=== PATIENT | female | born 1975 | race Two or more races ===

== ENCOUNTER 2022-11-16 07:13 | Inpatient (IN) | payer OTHER ==
[2022-11-16 08:33] LABS: HEMATOCRIT 26.2 % (32.4-45.2); HEMOGLOBIN 8.5 GM/dL (10.7-15.3); MCH 30.5 pg (25.7-33.7); MCHC 32.5 g/dl (32.0-36.0); MEAN CELL VOLUME 93.8 fl (80-96); MEAN PLT VOLUME 8.9 fl (7.5-11.1); PLATELET COUNT 409 10^3/uL (134-434); RBC 2.79 M/mm3 (3.60-5.2); RDW 18.4 % (11.6-15.6); WHITE BLOOD COUNT 7.2 K/mm3 (4.0-10.0)
[2022-11-16 08:36] LABS: INR 1.02 (0.83-1.09); PROTHROMBIN TIME (PATIENT) 11.8 SEC (9.7-13.0)
[2022-11-16 08:38] LABS: VENOUS BASE EXCESS -2.8 mmol/L (-2-2); VENOUS PH 7.422 (7.310-7.410)
[2022-11-16 08:53] LABS: LACTIC ACID 2.6 mmol/L (0.4-2.0)
[2022-11-16 08:56] LABS: POTASSIUM 3.5 mmol/L (3.5-5.1)
[2022-11-16 08:57] LABS: CALCIUM 8.1 mg/dL (8.5-10.1)
[2022-11-16 08:58] LABS: ALBUMIN 2.2 g/dl (3.4-5.0); BLOOD UREA NITROGEN 34.3 mg/dL (7-18)
[2022-11-16 09:01] LABS: CREATININE 1.7 mg/dL (0.55-1.3)
[2022-11-16 09:02] LABS: BILIRUBIN,TOTAL 0.2 mg/dL (0.2-1); TOT PROT 6.9 g/dl (6.4-8.2)
[2022-11-16] MEDS ORDERED: ASPIRIN 81 MG CHEWABLE TABLETS PO ONE (09:10)
[2022-11-16] MEDS ORDERED: MEROPENEM 1 GM VIAL (RESTRICTED TO ID) IVPB ONE (09:18)
[2022-11-16] MEDS ORDERED: ASPIRIN 81 MG CHEWABLE TABLETS ONE (09:18)
[2022-11-16] MEDS ORDERED: FUROSEMIDE 40 MG/4 ML INJECTABLE VIAL IVPUSH ONE (09:28)
[2022-11-16] MEDS ORDERED: VANCOMYCIN 1 GRAM (PRE-DOCKED) 1,000 MG/250 ML BAG IVPB ONE (09:32)
[2022-11-16] MEDS: MEROPENEM 1 GM in DEXTROSE 5%-WATER 100 ML IVPB ONE ×2 (09:38→10:10)
[2022-11-16] MEDS ORDERED: VANCOMYCIN/WATER FOR INJ (PEG) 1,000 MG/200 ML BAG IVPB ONE (10:00)
[2022-11-16] MEDS ORDERED: VANCOMYCIN 1,000 MG in DEXTROSE 5%-WATER - 250 ML IVPB ONE (10:00)
[2022-11-16 10:03] LABS: ANISOCYTOSIS 0; HELMET CELLS 0; HOWELL-JOLLY BODIES 0; MACROCYTOSIS 0; OVALOCYTE 0; ROULEAU 0; SICKELED CELLS 0; TARGET CELLS 0; TEAR DROP CELLS 0; TOXIC GRANULATION 0
[2022-11-16] MEDS ORDERED: FUROSEMIDE 40 MG/4 ML INJECTABLE VIAL ONE ×2 (10:13→14:24)
[2022-11-16 10:53] LABS: CHLORIDE 94 mmol/L (98-107); POTASSIUM 4.6 mmol/L (3.5-5.1); SODIUM 128 mmol/L (136-145)
[2022-11-16 10:54] LABS: ANION GAP 10 MMOL/L (8-16); CALCIUM 8.2 mg/dL (8.5-10.1); CO2 24 mmol/L (21-32)
[2022-11-16 10:55] LABS: BLOOD UREA NITROGEN 37.2 mg/dL (7-18); GLUCOSE,RANDOM 153 mg/dL (74-106)
[2022-11-16 10:58] LABS: CREATININE 1.7 mg/dL (0.55-1.3)
[2022-11-16 11:13] LABS: N-TERMINAL BNP > 35000.0 pg/ml (5-125)
[2022-11-16] MEDS ORDERED: ALBUTEROL SO4 2.5/IPRATROPIUM 0.5 INH SOL 3 ML VIAL.NEB. NEB PRN (12:20)
[2022-11-16] MEDS ORDERED: ACETAMINOPHEN 325 MG TABLET (FP) PO PRN (12:21)
[2022-11-16] MEDS ORDERED: ACETAMINOPHEN 650 MG/20.3 ML ORAL SOLUTION (CUPS) PO PRN (12:53)
[2022-11-16] MEDS ORDERED: FAMOTIDINE 20 MG/2.5 ML ORAL LIQUID GT SCH (13:00)
[2022-11-16] MEDS ORDERED: SEVELAMER CARBONATE 0.8 GM POWDER PACKET GT SCH (14:00)
[2022-11-16] MEDS ORDERED: ESCITALOPRAM OXALATE 10 MG TABLET ONE (14:40)
[2022-11-16] MEDS ORDERED: cloNIDine HCL 0.1 MG TABLET ONE ×2 (14:40→21:35)
[2022-11-16] MEDS ORDERED: CARVEDILOL 25 MG TABLET (FP) ONE ×2 (14:40→21:35)
[2022-11-16] MEDS: cloNIDine HCL 0.1 MG TABLET GT SCH ×2 (14:42→21:53)
[2022-11-16] MEDS: SODIUM CHLORIDE 1 GM TABLET GT SCH (14:42)
[2022-11-16] MEDS: CARVEDILOL 25 MG TABLET (FP) GT SCH ×2 (14:42→21:53)
[2022-11-16] MEDS: ESCITALOPRAM OXALATE 10 MG TABLET GT SCH (14:42)
[2022-11-16] MEDS: ISOSORBIDE DINITRATE 10 MG TABLET GT SCH (14:43)
[2022-11-16] MEDS: FUROSEMIDE 40 MG/4 ML INJECTABLE VIAL IVPUSH SCH (14:43)
[2022-11-16] MEDS: VALPROATE SODIUM 250 MG/5 ML UNIT DOSE CUP GT SCH ×2 (14:43→21:53)
[2022-11-16 15:30] LABS: PH,URINE 5.5 (5.0-8.0); URINE APPEARANCE Clear; URINE BILIRUBIN Negative (NEGATIVE); URINE COLOR Yellow; URINE GLUCOSE (UA) Negative (NEGATIVE); URINE KETONE Negative (NEGATIVE); URINE LEUK ESTERASE 2+ (NEGATIVE); URINE NITRITE Negative (NEGATIVE); URINE PROTEIN 1+ (NEGATIVE); URINE UROBILINOGEN 0.2 mg/dL (0.2-1.0)
[2022-11-16] MEDS: SEVELAMER CARBONATE 0.8 GM POWDER PACKET GT SCH (17:31)
[2022-11-16] MEDS ORDERED: ATORVASTATIN CA 80 MG TABLET (FP) ONE (21:35)
[2022-11-16] MEDS ORDERED: VALPROATE SODIUM 500 MG/5 ML VIAL ONE (21:35)
[2022-11-16] MEDS ORDERED: HEPARIN NA (PORCINE) 5,000 UNITS/ML 1ML VIAL ONE (21:35)
[2022-11-16] MEDS: HEPARIN NA (PORCINE) 5,000 UNITS/ML 1ML VIAL SQ SCH (21:53)
[2022-11-16] MEDS: ATORVASTATIN CA 80 MG TABLET (FP) GT SCH (21:53)
[2022-11-17] MEDS: FUROSEMIDE 40 MG/4 ML INJECTABLE VIAL IVPUSH SCH ×2 (06:35→16:14)
[2022-11-17 08:12] LABS: POTASSIUM 3.2 mmol/L (3.5-5.1)
[2022-11-17 08:15] LABS: BLOOD UREA NITROGEN 52.3 mg/dL (7-18); CALCIUM 8.6 mg/dL (8.5-10.1)
[2022-11-17 08:19] LABS: CREATININE 2.2 mg/dL (0.55-1.3)
[2022-11-17 08:32] LABS: BASO % 0.2 % (0-2.0); HEMATOCRIT 26.9 % (32.4-45.2); HEMOGLOBIN 8.5 GM/dL (10.7-15.3); MCH 30.1 pg (25.7-33.7); MCHC 31.6 g/dl (32.0-36.0); MEAN CELL VOLUME 95.2 fl (80-96); MEAN PLT VOLUME 8.2 fl (7.5-11.1); NEUT % 77.8 % (42.8-82.8); PLATELET COUNT 448 10^3/uL (134-434); RBC 2.82 M/mm3 (3.60-5.2); RDW 17.9 % (11.6-15.6); WHITE BLOOD COUNT 9.8 K/mm3 (4.0-10.0)
[2022-11-17] MEDS: VALPROATE SODIUM 250 MG/5 ML UNIT DOSE CUP GT SCH ×2 (09:47→22:42)
[2022-11-17] MEDS: ISOSORBIDE DINITRATE 10 MG TABLET GT SCH ×2 (09:48→13:46)
[2022-11-17] MEDS: ESCITALOPRAM OXALATE 10 MG TABLET GT SCH (09:49)
[2022-11-17] MEDS: CARVEDILOL 25 MG TABLET (FP) GT SCH ×2 (09:49→22:41)
[2022-11-17] MEDS: cloNIDine HCL 0.1 MG TABLET GT SCH ×2 (10:18→22:41)
[2022-11-17] MEDS: HEPARIN NA (PORCINE) 5,000 UNITS/ML 1ML VIAL SQ SCH ×2 (10:18→22:42)
[2022-11-17] MEDS: SEVELAMER CARBONATE 0.8 GM POWDER PACKET GT SCH ×3 (10:18→17:20)
[2022-11-17] MEDS: SODIUM CHLORIDE 1 GM TABLET GT SCH (10:18)
[2022-11-17] MEDS ORDERED: SODIUM CHLORIDE 250 ML IV PRN (21:19)
[2022-11-17] MEDS: ATORVASTATIN CA 80 MG TABLET (FP) GT SCH (22:42)
[2022-11-17] MEDS: CHLORHEXIDINE GLUCONATE 4% CLEANSER FOR DECOLONIZATION TP SCH (23:38)
[2022-11-17] MEDS: MUPIROCIN 2% TOPICAL OINTMENT FOR DECOLONIZATION NS SCH (23:38)
[2022-11-18] MEDS ORDERED: FUROSEMIDE 40 MG/4 ML INJECTABLE VIAL IVPUSH ONE (02:14)
[2022-11-18] MEDS ORDERED: FUROSEMIDE 40 MG/4 ML INJECTABLE VIAL ONE (02:27)
[2022-11-18] MEDS: hydrALAZINE HCL 20 MG/ML VIAL IVPUSH PRN (03:42)
[2022-11-18] MEDS ORDERED: ALBUTEROL SO4 2.5/IPRATROPIUM 0.5 INH SOL 3 ML VIAL.NEB. NEB PRN (07:16)
[2022-11-18] MEDS ORDERED: ALPRAZolam 0.25 MG TABLET PO PRN (07:37)
[2022-11-18] MEDS: SEVELAMER CARBONATE 0.8 GM POWDER PACKET GT SCH ×3 (07:58→17:49)
[2022-11-18] MEDS: ISOSORBIDE DINITRATE 10 MG TABLET GT SCH ×2 (07:58→12:40)
[2022-11-18] MEDS: HEPARIN NA (PORCINE) 5,000 UNITS/ML 1ML VIAL SQ SCH ×3 (09:43→22:45)
[2022-11-18] MEDS: VALPROATE SODIUM 250 MG/5 ML UNIT DOSE CUP GT SCH ×2 (09:43→22:33)
[2022-11-18] MEDS: FAMOTIDINE 20 MG/2.5 ML ORAL LIQUID GT SCH (09:43)
[2022-11-18] MEDS: cloNIDine HCL 0.1 MG TABLET GT SCH ×2 (09:44→22:33)
[2022-11-18] MEDS: ESCITALOPRAM OXALATE 10 MG TABLET GT SCH (09:44)
[2022-11-18] MEDS: CARVEDILOL 25 MG TABLET (FP) GT SCH ×2 (09:44→22:32)
[2022-11-18] MEDS: MUPIROCIN 2% TOPICAL OINTMENT FOR DECOLONIZATION NS SCH ×2 (09:45→22:33)
[2022-11-18 11:16] LABS: HEMATOCRIT 23.3 % (32.4-45.2); HEMOGLOBIN 7.8 GM/dL (10.7-15.3); MCH 30.8 pg (25.7-33.7); MCHC 33.3 g/dl (32.0-36.0); MEAN CELL VOLUME 92.5 fl (80-96); MEAN PLT VOLUME 7.7 fl (7.5-11.1); PLATELET COUNT 451 10^3/uL (134-434); RBC 2.52 M/mm3 (3.60-5.2); RDW 17.8 % (11.6-15.6)
[2022-11-18 11:37] LABS: POTASSIUM 3.2 mmol/L (3.5-5.1)
[2022-11-18 11:39] LABS: CALCIUM 8.2 mg/dL (8.5-10.1)
[2022-11-18 11:40] LABS: BLOOD UREA NITROGEN 34.2 mg/dL (7-18); MAGNESIUM 1.7 mg/dL (1.8-2.4)
[2022-11-18 11:43] LABS: PHOSPHOROUS 2.2 mg/dL (2.5-4.9)
[2022-11-18 12:40] VITALS: BMI 16.9
[2022-11-18] MEDS: CHLORHEXIDINE GLUCONATE 4% CLEANSER FOR DECOLONIZATION TP SCH (22:34)
[2022-11-18] MEDS: ATORVASTATIN CA 80 MG TABLET (FP) GT SCH (22:34)
[2022-11-19] MEDS ORDERED: INSULIN (NOVOLOG) ASPART 100 UNITS/ML 10ML VIAL ONE (06:57)
[2022-11-19 07:21] LABS: HEMATOCRIT 24.6 % (32.4-45.2); RBC 2.62 M/mm3 (3.60-5.2); WHITE BLOOD COUNT 11.2 K/mm3 (4.0-10.0)
[2022-11-19 07:22] LABS: BASO % 0.5 % (0-2.0); EOS % 1.1 % (0-4.5); MCH 30.4 pg (25.7-33.7); MCHC 32.4 g/dl (32.0-36.0); MEAN CELL VOLUME 93.8 fl (80-96); MEAN PLT VOLUME 7.7 fl (7.5-11.1); MONO % 5.5 % (3.8-10.2); NEUT % 84.9 % (42.8-82.8); PLATELET COUNT 526 10^3/uL (134-434); RDW 18.4 % (11.6-15.6)
[2022-11-19 07:41] LABS: POTASSIUM 3.8 mmol/L (3.5-5.1)
[2022-11-19 07:47] LABS: CALCIUM 8.2 mg/dL (8.5-10.1)
[2022-11-19 07:50] LABS: PHOSPHOROUS 2.8 mg/dL (2.5-4.9)
[2022-11-19 07:51] LABS: CREATININE 2.9 mg/dL (0.55-1.3)
[2022-11-19] MEDS: SEVELAMER CARBONATE 0.8 GM POWDER PACKET GT SCH ×3 (08:26→17:24)
[2022-11-19] MEDS: ISOSORBIDE DINITRATE 10 MG TABLET GT SCH ×2 (08:26→13:00)
[2022-11-19] MEDS: cloNIDine HCL 0.1 MG TABLET GT SCH ×2 (10:24→21:42)
[2022-11-19] MEDS: HEPARIN NA (PORCINE) 5,000 UNITS/ML 1ML VIAL SQ SCH ×2 (10:24→21:42)
[2022-11-19] MEDS: CARVEDILOL 25 MG TABLET (FP) GT SCH ×2 (10:24→21:42)
[2022-11-19] MEDS: ESCITALOPRAM OXALATE 10 MG TABLET GT SCH (10:24)
[2022-11-19] MEDS: VALPROATE SODIUM 250 MG/5 ML UNIT DOSE CUP GT SCH ×2 (10:24→21:42)
[2022-11-19] MEDS: MUPIROCIN 2% TOPICAL OINTMENT FOR DECOLONIZATION NS SCH ×2 (10:25→21:38)
[2022-11-19] MEDS ORDERED: FUROSEMIDE 40 MG/4 ML INJECTABLE VIAL IVPUSH ONE (10:30)
[2022-11-19] MEDS: ALPRAZolam 0.25 MG TABLET PO PRN (18:08)
[2022-11-19] MEDS: ACETAMINOPHEN 650 MG/20.3 ML ORAL SOLUTION (CUPS) GT PRN (18:12)
[2022-11-19] MEDS: CHLORHEXIDINE GLUCONATE 4% CLEANSER FOR DECOLONIZATION TP SCH (21:42)
[2022-11-19] MEDS: ATORVASTATIN CA 80 MG TABLET (FP) GT SCH (21:42)
[2022-11-20] MEDS ORDERED: LORazepam 2 MG/ML SDV VIAL IVPB ONE (03:16)
[2022-11-20] MEDS ORDERED: FUROSEMIDE 40 MG/4 ML INJECTABLE VIAL IVPUSH ONE (05:14)
[2022-11-20] MEDS ORDERED: FUROSEMIDE 100 MG/10 ML INJECTABLE VIAL IVPB ONE (05:17)
[2022-11-20] MEDS: ALPRAZolam 0.25 MG TABLET PO PRN (06:03)
[2022-11-20 06:38] LABS: BASO % 0.3 % (0-2.0); EOS % 0.5 % (0-4.5); HEMATOCRIT 28.9 % (32.4-45.2); HEMOGLOBIN 9.3 GM/dL (10.7-15.3); LYMPH % 4.9 % (8-40); MCH 30.5 pg (25.7-33.7); MCHC 32.1 g/dl (32.0-36.0); MEAN CELL VOLUME 94.9 fl (80-96); MEAN PLT VOLUME 7.7 fl (7.5-11.1); MONO % 3.6 % (3.8-10.2); NEUT % 90.7 % (42.8-82.8); PLATELET COUNT 568 10^3/uL (134-434); RBC 3.04 M/mm3 (3.60-5.2); RDW 18.6 % (11.6-15.6); WHITE BLOOD COUNT 10.8 K/mm3 (4.0-10.0)
[2022-11-20 06:44] LABS: ARTERIAL BLD GAS O2 SATURATION 93.6 % (95-98); ARTERIAL BLOOD GAS BASE EXCESS 0.8 mmol/L (-2-2); ARTERIAL BLOOD GAS PO2 64.4 mmHg (80-100); ARTERIAL BLOOD GAS pH 7.452 (7.350-7.450)
[2022-11-20] MEDS ORDERED: SODIUM CHLORIDE 250 ML IV PRN (06:58)
[2022-11-20 06:59] LABS: POTASSIUM 4.8 mmol/L (3.5-5.1)
[2022-11-20 07:02] LABS: VENT MODE S/T; VENT RATE 25
[2022-11-20 07:02] LABS: ALBUMIN 2.1 g/dl (3.4-5.0); BLOOD UREA NITROGEN 52.4 mg/dL (7-18); CALCIUM 8.7 mg/dL (8.5-10.1); MAGNESIUM 2.1 mg/dL (1.8-2.4)
[2022-11-20 07:05] LABS: CREATININE 3.8 mg/dL (0.55-1.3); PHOSPHOROUS 3.8 mg/dL (2.5-4.9)
[2022-11-20 07:07] LABS: BILIRUBIN,TOTAL 0.3 mg/dL (0.2-1); TOT PROT 6.4 g/dl (6.4-8.2)
[2022-11-20] MEDS ORDERED: MIDAZOLAM HCL 2 MG/2 ML SINGLE DOSE VIAL IVPUSH ONE ×4 (08:16→10:53)
[2022-11-20] MEDS: ISOSORBIDE DINITRATE 10 MG TABLET GT SCH ×2 (09:51→13:41)
[2022-11-20] MEDS: VALPROATE SODIUM 250 MG/5 ML UNIT DOSE CUP GT SCH ×2 (09:51→21:42)
[2022-11-20] MEDS: CARVEDILOL 25 MG TABLET (FP) GT SCH ×2 (09:51→21:40)
[2022-11-20] MEDS: HEPARIN NA (PORCINE) 5,000 UNITS/ML 1ML VIAL SQ SCH ×2 (09:51→21:42)
[2022-11-20] MEDS: cloNIDine HCL 0.1 MG TABLET GT SCH ×2 (09:52→21:40)
[2022-11-20] MEDS: ESCITALOPRAM OXALATE 10 MG TABLET GT SCH (09:52)
[2022-11-20] MEDS: SEVELAMER CARBONATE 0.8 GM POWDER PACKET GT SCH ×3 (09:52→16:34)
[2022-11-20] MEDS: MUPIROCIN 2% TOPICAL OINTMENT FOR DECOLONIZATION NS SCH ×3 (09:52→21:42)
[2022-11-20] MEDS: FAMOTIDINE 20 MG/2.5 ML ORAL LIQUID GT SCH (09:52)
[2022-11-20 10:47] LABS: ARTERIAL BLD GAS O2 SATURATION 98.7 % (95-98); ARTERIAL BLOOD GAS BASE EXCESS 6.1 mmol/L (-2-2); ARTERIAL BLOOD GAS PO2 123.1 mmHg (80-100); ARTERIAL BLOOD GAS pH 7.491 (7.350-7.450)
[2022-11-20 10:51] LABS: ALLENS TEST POSITIVE
[2022-11-20] MEDS ORDERED: LIDOCAINE HCL 1%, 10 MG/ML (10ML VIAL) MDV SQ ONE (11:13)
[2022-11-20 13:04] LABS: BF WBC & OTHER NUCLEATED CELLS 381 /mm3
[2022-11-20 13:29] LABS: BODY FLUID MACROPHAGES 60 %; BODY FLUID MESOTHELIAL 2 %
[2022-11-20] MEDS: ACETAMINOPHEN 650 MG/20.3 ML ORAL SOLUTION (CUPS) GT PRN (18:08)
[2022-11-20] MEDS ORDERED: MEROPENEM 1 GM in DEXTROSE 5%-WATER 100 ML IVPB SCH (18:15)
[2022-11-20] MEDS: MEROPENEM 1 GM in DEXTROSE 5%-WATER 100 ML IVPB SCH (18:40)
[2022-11-20] MEDS: ATORVASTATIN CA 80 MG TABLET (FP) GT SCH (21:42)
[2022-11-20] MEDS: CHLORHEXIDINE GLUCONATE 4% CLEANSER FOR DECOLONIZATION TP SCH (21:42)
[2022-11-21] MEDS: MEROPENEM 1 GM in DEXTROSE 5%-WATER 100 ML IVPB SCH (01:12)
[2022-11-21] MEDS ORDERED: MEROPENEM 1 GM in DEXTROSE 5%-WATER 100 ML IVPB SCH (02:00)
[2022-11-21] MEDS: ALPRAZolam 0.25 MG TABLET PO PRN (05:49)
[2022-11-21 07:05] LABS: BASO % 0.4 % (0-2.0); EOS % 0.6 % (0-4.5); HEMATOCRIT 26.6 % (32.4-45.2); HEMOGLOBIN 8.7 GM/dL (10.7-15.3); LYMPH % 7.1 % (8-40); MCHC 32.6 g/dl (32.0-36.0); MEAN PLT VOLUME 7.7 fl (7.5-11.1); MONO % 4.5 % (3.8-10.2); NEUT % 87.4 % (42.8-82.8); PLATELET COUNT 479 10^3/uL (134-434); RDW 18.5 % (11.6-15.6); WHITE BLOOD COUNT 8.1 K/mm3 (4.0-10.0)
[2022-11-21 07:25] LABS: MAGNESIUM 1.9 mg/dL (1.8-2.4)
[2022-11-21 07:29] LABS: PHOSPHOROUS 5.2 mg/dL (2.5-4.9)
[2022-11-21 08:04] LABS: POTASSIUM 4.1 mmol/L (3.5-5.1)
[2022-11-21 08:05] LABS: CALCIUM 8.3 mg/dL (8.5-10.1)
[2022-11-21 08:07] LABS: BLOOD UREA NITROGEN 27.7 mg/dL (7-18)
[2022-11-21 08:11] LABS: BILIRUBIN,TOTAL 0.2 mg/dL (0.2-1); TOT PROT 6.2 g/dl (6.4-8.2)
[2022-11-21] MEDS: ISOSORBIDE DINITRATE 10 MG TABLET GT SCH ×2 (09:00→14:14)
[2022-11-21] MEDS: VALPROATE SODIUM 250 MG/5 ML UNIT DOSE CUP GT SCH ×2 (10:00→21:05)
[2022-11-21] MEDS: SEVELAMER CARBONATE 0.8 GM POWDER PACKET GT SCH ×3 (10:00→17:56)
[2022-11-21] MEDS: MUPIROCIN 2% TOPICAL OINTMENT FOR DECOLONIZATION NS SCH ×4 (10:00→21:05)
[2022-11-21] MEDS ORDERED: VANCOMYCIN/WATER FOR INJ (PEG) 750 MG/150 ML BAG IVPB ONE (10:00)
[2022-11-21] MEDS: ACETAMINOPHEN 650 MG/20.3 ML ORAL SOLUTION (CUPS) GT PRN ×2 (10:00→21:06)
[2022-11-21] MEDS: CARVEDILOL 25 MG TABLET (FP) GT SCH ×2 (10:01→21:05)
[2022-11-21] MEDS: ESCITALOPRAM OXALATE 10 MG TABLET GT SCH (10:01)
[2022-11-21] MEDS: HEPARIN NA (PORCINE) 5,000 UNITS/ML 1ML VIAL SQ SCH ×2 (10:01→21:05)
[2022-11-21] MEDS: cloNIDine HCL 0.1 MG TABLET GT SCH ×2 (10:01→21:05)
[2022-11-21] MEDS ORDERED: SODIUM CHLORIDE 500 ML IV STA (13:29)
[2022-11-21] MEDS: CEFEPIME 1 GM in DEXTROSE 5%-WATER 100 ML IVPB SCH (14:18)
[2022-11-21] MEDS: ATORVASTATIN CA 80 MG TABLET (FP) GT SCH (21:05)
[2022-11-21] MEDS: CHLORHEXIDINE GLUCONATE 4% CLEANSER FOR DECOLONIZATION TP SCH (21:06)
[2022-11-21] MEDS ORDERED: POLYETHYLENE GLYCOL (HEALTHYLAX) 3350 17 GM PACKET PO SCH (22:00)
[2022-11-22 07:20] LABS: HEMOGLOBIN 7.8 GM/dL (10.7-15.3); MCHC 32.4 g/dl (32.0-36.0); MEAN CELL VOLUME 95.5 fl (80-96); MEAN PLT VOLUME 7.6 fl (7.5-11.1); PLATELET COUNT 359 10^3/uL (134-434); RBC 2.51 M/mm3 (3.60-5.2); RDW 18.6 % (11.6-15.6); WHITE BLOOD COUNT 4.6 K/mm3 (4.0-10.0)
[2022-11-22 08:19] LABS: POTASSIUM 4.1 mmol/L (3.5-5.1)
[2022-11-22 08:33] LABS: BILIRUBIN,TOTAL 0.2 mg/dL (0.2-1)
[2022-11-22 08:35] LABS: TOT PROT 5.3 g/dl (6.4-8.2)
[2022-11-22 08:38] LABS: ALBUMIN 1.6 g/dl (3.4-5.0); BLOOD UREA NITROGEN 44.9 mg/dL (7-18)
[2022-11-22 08:42] LABS: CREATININE 4.4 mg/dL (0.55-1.3); PHOSPHOROUS 6.8 mg/dL (2.5-4.9)
[2022-11-22 08:43] LABS: CALCIUM 8.3 mg/dL (8.5-10.1)
[2022-11-22 08:44] LABS: MAGNESIUM 2.2 mg/dL (1.8-2.4)
[2022-11-22] MEDS ORDERED: SODIUM CHLORIDE 250 ML IV PRN (09:59)
[2022-11-22] MEDS ORDERED: EPOETIN ALFA-EPBX 4,000 UNIT/ML VIAL SQ ONE (10:00)
[2022-11-22] MEDS: CARVEDILOL 25 MG TABLET (FP) GT SCH ×2 (10:00→21:43)
[2022-11-22] MEDS: hydrALAZINE HCL 20 MG/ML VIAL IVPUSH PRN (12:01)
[2022-11-22] MEDS: FAMOTIDINE 20 MG/2.5 ML ORAL LIQUID GT SCH (12:01)
[2022-11-22] MEDS: ISOSORBIDE DINITRATE 10 MG TABLET GT SCH ×2 (12:01→14:34)
[2022-11-22] MEDS: CEFEPIME 1 GM in DEXTROSE 5%-WATER 100 ML IVPB SCH (12:02)
[2022-11-22] MEDS: ESCITALOPRAM OXALATE 10 MG TABLET GT SCH (12:03)
[2022-11-22] MEDS: MUPIROCIN 2% TOPICAL OINTMENT FOR DECOLONIZATION NS SCH ×3 (12:04→21:43)
[2022-11-22] MEDS: cloNIDine HCL 0.1 MG TABLET GT SCH ×2 (12:04→21:42)
[2022-11-22] MEDS: VALPROATE SODIUM 250 MG/5 ML UNIT DOSE CUP GT SCH ×2 (12:04→21:42)
[2022-11-22] MEDS: SEVELAMER CARBONATE 0.8 GM POWDER PACKET GT SCH ×3 (12:05→17:44)
[2022-11-22] MEDS: ACETAMINOPHEN 650 MG/20.3 ML ORAL SOLUTION (CUPS) GT PRN ×2 (14:19→21:41)
[2022-11-22] MEDS: HEPARIN NA (PORCINE) 5,000 UNITS/ML 1ML VIAL SQ SCH ×2 (14:32→21:43)
[2022-11-22 16:09] LABS: BODY FLUID ALBUMIN 0.5 g/dL (Not Estab.)
[2022-11-22] MEDS: MEROPENEM 500 MG in DEXTROSE 5%-WATER 100 ML IVPB SCH (17:44)
[2022-11-22] MEDS ORDERED: hydrALAZINE HCL 20 MG/ML VIAL IVPUSH PRN (19:10)
[2022-11-22] MEDS ORDERED: ALBUTEROL SO4 2.5/IPRATROPIUM 0.5 INH SOL 3 ML VIAL.NEB. NEB PRN (19:10)
[2022-11-22] MEDS: ALPRAZolam 0.25 MG TABLET GT PRN (21:41)
[2022-11-22] MEDS: ATORVASTATIN CA 80 MG TABLET (FP) GT SCH (21:42)
[2022-11-22] MEDS: CHLORHEXIDINE GLUCONATE 4% CLEANSER FOR DECOLONIZATION TP SCH (21:43)
[2022-11-22] MEDS ORDERED: MUPIROCIN 2% TOPICAL OINTMENT FOR DECOLONIZATION NS SCH (22:00)
[2022-11-23 07:49] LABS: HEMATOCRIT 30.2 % (32.4-45.2); HEMOGLOBIN 9.8 GM/dL (10.7-15.3); MCH 30.8 pg (25.7-33.7); MCHC 32.3 g/dl (32.0-36.0); MEAN CELL VOLUME 95.6 fl (80-96); MEAN PLT VOLUME 7.6 fl (7.5-11.1); PLATELET COUNT 387 10^3/uL (134-434); RBC 3.16 M/mm3 (3.60-5.2); RDW 18.9 % (11.6-15.6); WHITE BLOOD COUNT 4.8 K/mm3 (4.0-10.0)
[2022-11-23 08:04] LABS: POTASSIUM 4.5 mmol/L (3.5-5.1)
[2022-11-23 08:06] LABS: ALBUMIN 1.8 g/dl (3.4-5.0); CALCIUM 8.2 mg/dL (8.5-10.1); MAGNESIUM 1.9 mg/dL (1.8-2.4)
[2022-11-23 08:10] LABS: CREATININE 3.3 mg/dL (0.55-1.3); PHOSPHOROUS 4.2 mg/dL (2.5-4.9)
[2022-11-23 08:12] LABS: BILIRUBIN,TOTAL 0.3 mg/dL (0.2-1); TOT PROT 6.3 g/dl (6.4-8.2)
[2022-11-23] MEDS: SEVELAMER CARBONATE 0.8 GM POWDER PACKET GT SCH ×3 (09:14→17:52)
[2022-11-23] MEDS: ESCITALOPRAM OXALATE 10 MG TABLET GT SCH (09:14)
[2022-11-23] MEDS: CARVEDILOL 25 MG TABLET (FP) GT SCH ×2 (09:15→21:03)
[2022-11-23] MEDS: VALPROATE SODIUM 250 MG/5 ML UNIT DOSE CUP GT SCH ×2 (09:15→21:02)
[2022-11-23] MEDS: HEPARIN NA (PORCINE) 5,000 UNITS/ML 1ML VIAL SQ SCH ×2 (09:20→21:02)
[2022-11-23] MEDS: cloNIDine HCL 0.1 MG TABLET GT SCH (09:23)
[2022-11-23] MEDS: MUPIROCIN 2% TOPICAL OINTMENT FOR DECOLONIZATION NS SCH ×2 (09:24→21:03)
[2022-11-23] MEDS: ISOSORBIDE DINITRATE 10 MG TABLET GT SCH ×2 (09:24→13:00)
[2022-11-23] MEDS ORDERED: REMDESIVIR 200 MG in SODIUM CHLORIDE 250 ML IVPB ONE (14:00)
[2022-11-23] MEDS: MEROPENEM 500 MG in DEXTROSE 5%-WATER 100 ML IVPB SCH (17:52)
[2022-11-23] MEDS: ATORVASTATIN CA 80 MG TABLET (FP) GT SCH (21:02)
[2022-11-23] MEDS: CHLORHEXIDINE GLUCONATE 4% CLEANSER FOR DECOLONIZATION TP SCH (21:03)
[2022-11-23] MEDS: ALPRAZolam 0.25 MG TABLET GT PRN (21:03)
[2022-11-24] MEDS: HEPARIN NA (PORCINE) 5,000 UNITS/ML 1ML VIAL SQ SCH ×3 (05:51→21:25)
[2022-11-24] MEDS: ISOSORBIDE DINITRATE 10 MG TABLET GT SCH ×2 (08:54→17:38)
[2022-11-24] MEDS: SEVELAMER CARBONATE 0.8 GM POWDER PACKET GT SCH ×3 (08:54→17:11)
[2022-11-24] MEDS: VALPROATE SODIUM 250 MG/5 ML UNIT DOSE CUP GT SCH ×2 (10:23→21:25)
[2022-11-24] MEDS: cloNIDine HCL 0.1 MG TABLET GT SCH (10:24)
[2022-11-24] MEDS: ESCITALOPRAM OXALATE 10 MG TABLET GT SCH (10:24)
[2022-11-24] MEDS: CARVEDILOL 25 MG TABLET (FP) GT SCH ×2 (10:24→21:26)
[2022-11-24] MEDS: MUPIROCIN 2% TOPICAL OINTMENT FOR DECOLONIZATION NS SCH ×2 (10:38→21:26)
[2022-11-24 10:50] LABS: POTASSIUM 4.2 mmol/L (3.5-5.1)
[2022-11-24 10:52] LABS: CALCIUM 8.3 mg/dL (8.5-10.1)
[2022-11-24 11:02] LABS: ALBUMIN 1.6 g/dl (3.4-5.0)
[2022-11-24 11:06] LABS: BILIRUBIN,DIRECT 0.1 mg/dL (0.0-0.2)
[2022-11-24 11:07] LABS: BILIRUBIN,TOTAL 0.2 mg/dL (0.2-1); TOT PROT 5.5 g/dl (6.4-8.2)
[2022-11-24 11:09] LABS: BLOOD UREA NITROGEN 63.7 mg/dL (7-18)
[2022-11-24] MEDS: FAMOTIDINE 20 MG/2.5 ML ORAL LIQUID GT SCH (11:15)
[2022-11-24] MEDS: DEXAMETHASONE SOD PHOSPHATE 10 MG/1 ML VIAL IVPUSH SCH (11:29)
[2022-11-24] MEDS: ACETAMINOPHEN 650 MG/20.3 ML ORAL SOLUTION (CUPS) GT PRN (11:30)
[2022-11-24] MEDS ORDERED: EPOETIN ALFA-EPBX 4,000 UNIT/ML VIAL IVPUSH ONE (17:15)
[2022-11-24] MEDS ORDERED: SODIUM CHLORIDE 250 ML IV PRN (17:16)
[2022-11-24] MEDS: MEROPENEM 500 MG in DEXTROSE 5%-WATER 100 ML IVPB SCH (17:37)
[2022-11-24] MEDS: REMDESIVIR 100 MG in SODIUM CHLORIDE 250 ML IVPB SCH (17:38)
[2022-11-24] MEDS: ATORVASTATIN CA 80 MG TABLET (FP) GT SCH (21:26)
[2022-11-24] MEDS: ALPRAZolam 0.25 MG TABLET GT PRN (21:26)
[2022-11-24] MEDS: CHLORHEXIDINE GLUCONATE 4% CLEANSER FOR DECOLONIZATION TP SCH (21:26)
[2022-11-25] MEDS: HEPARIN NA (PORCINE) 5,000 UNITS/ML 1ML VIAL SQ SCH ×3 (05:56→22:30)
[2022-11-25 07:47] LABS: BASO % 0.2 % (0-2.0); HEMATOCRIT 31.1 % (32.4-45.2); LYMPH % 16.1 % (8-40); MCH 29.9 pg (25.7-33.7); MCHC 32.2 g/dl (32.0-36.0); MEAN CELL VOLUME 92.7 fl (80-96); MONO % 6.2 % (3.8-10.2); NEUT % 77.5 % (42.8-82.8); PLATELET COUNT 307 10^3/uL (134-434); RBC 3.35 M/mm3 (3.60-5.2); RDW 18.2 % (11.6-15.6); WHITE BLOOD COUNT 5.4 K/mm3 (4.0-10.0)
[2022-11-25 08:01] LABS: POTASSIUM 3.6 mmol/L (3.5-5.1)
[2022-11-25 08:11] LABS: ALBUMIN 1.7 g/dl (3.4-5.0); BILIRUBIN,TOTAL 0.3 mg/dL (0.2-1); CALCIUM 7.7 mg/dL (8.5-10.1); CREATININE 2.6 mg/dL (0.55-1.3); MAGNESIUM 1.9 mg/dL (1.8-2.4); PHOSPHOROUS 3.1 mg/dL (2.5-4.9); TOT PROT 5.6 g/dl (6.4-8.2)
[2022-11-25] MEDS: SEVELAMER CARBONATE 0.8 GM POWDER PACKET GT SCH ×3 (09:00→17:16)
[2022-11-25] MEDS: ISOSORBIDE DINITRATE 10 MG TABLET GT SCH ×2 (09:10→14:40)
[2022-11-25] MEDS: ACETAMINOPHEN 650 MG/20.3 ML ORAL SOLUTION (CUPS) GT PRN (10:18)
[2022-11-25] MEDS: MUPIROCIN 2% TOPICAL OINTMENT FOR DECOLONIZATION NS SCH (10:18)
[2022-11-25] MEDS: cloNIDine HCL 0.1 MG TABLET GT SCH (10:19)
[2022-11-25] MEDS: VALPROATE SODIUM 250 MG/5 ML UNIT DOSE CUP GT SCH ×2 (10:19→22:30)
[2022-11-25] MEDS: ESCITALOPRAM OXALATE 10 MG TABLET GT SCH (10:20)
[2022-11-25] MEDS: DEXAMETHASONE SOD PHOSPHATE 10 MG/1 ML VIAL IVPUSH SCH (10:20)
[2022-11-25] MEDS: CARVEDILOL 25 MG TABLET (FP) GT SCH ×2 (10:20→22:30)
[2022-11-25] MEDS: REMDESIVIR 100 MG in SODIUM CHLORIDE 250 ML IVPB SCH (14:41)
[2022-11-25] MEDS: MEROPENEM 500 MG in DEXTROSE 5%-WATER 100 ML IVPB SCH (18:16)
[2022-11-25] MEDS: ATORVASTATIN CA 80 MG TABLET (FP) GT SCH (22:31)
[2022-11-25] MEDS: CHLORHEXIDINE GLUCONATE 4% CLEANSER FOR DECOLONIZATION TP SCH (22:31)
[2022-11-26] MEDS: HEPARIN NA (PORCINE) 5,000 UNITS/ML 1ML VIAL SQ SCH ×3 (05:49→21:02)
[2022-11-26 08:05] LABS: BASO % 0.1 % (0-2.0); HEMATOCRIT 29.6 % (32.4-45.2); HEMOGLOBIN 9.7 GM/dL (10.7-15.3); LYMPH % 16.4 % (8-40); MCH 30.4 pg (25.7-33.7); MCHC 32.8 g/dl (32.0-36.0); MEAN CELL VOLUME 92.8 fl (80-96); MEAN PLT VOLUME 8.6 fl (7.5-11.1); MONO % 4.1 % (3.8-10.2); NEUT % 79.4 % (42.8-82.8); PLATELET COUNT 291 10^3/uL (134-434); RBC 3.19 M/mm3 (3.60-5.2); RDW 18.8 % (11.6-15.6); WHITE BLOOD COUNT 7.1 K/mm3 (4.0-10.0)
[2022-11-26 08:59] LABS: ALBUMIN 1.8 g/dl (3.4-5.0); BILIRUBIN,TOTAL 0.4 mg/dL (0.2-1); BLOOD UREA NITROGEN 79.5 mg/dL (7-18); CREATININE 3.5 mg/dL (0.55-1.3); MAGNESIUM 2.1 mg/dL (1.8-2.4); PHOSPHOROUS 3.8 mg/dL (2.5-4.9); POTASSIUM 4.3 mmol/L (3.5-5.1); TOT PROT 5.6 g/dl (6.4-8.2)
[2022-11-26] MEDS: ACETAMINOPHEN 650 MG/20.3 ML ORAL SOLUTION (CUPS) GT PRN ×2 (09:43→21:02)
[2022-11-26] MEDS: VALPROATE SODIUM 250 MG/5 ML UNIT DOSE CUP GT SCH ×2 (09:43→21:02)
[2022-11-26] MEDS: DEXAMETHASONE SOD PHOSPHATE 10 MG/1 ML VIAL IVPUSH SCH (09:44)
[2022-11-26] MEDS: SEVELAMER CARBONATE 0.8 GM POWDER PACKET GT SCH ×3 (09:44→18:16)
[2022-11-26] MEDS: FAMOTIDINE 20 MG/2.5 ML ORAL LIQUID GT SCH (09:44)
[2022-11-26] MEDS: ISOSORBIDE DINITRATE 10 MG TABLET GT SCH ×2 (09:45→15:08)
[2022-11-26] MEDS: CARVEDILOL 25 MG TABLET (FP) GT SCH ×2 (09:45→21:02)
[2022-11-26] MEDS: cloNIDine HCL 0.1 MG TABLET GT SCH (09:45)
[2022-11-26] MEDS: ESCITALOPRAM OXALATE 10 MG TABLET GT SCH (09:45)
[2022-11-26] MEDS: REMDESIVIR 100 MG in SODIUM CHLORIDE 250 ML IVPB SCH (15:08)
[2022-11-26] MEDS: MEROPENEM 500 MG in DEXTROSE 5%-WATER 100 ML IVPB SCH (18:16)
[2022-11-26] MEDS: ATORVASTATIN CA 80 MG TABLET (FP) GT SCH (21:02)
[2022-11-26] MEDS: CHLORHEXIDINE GLUCONATE 4% CLEANSER FOR DECOLONIZATION TP SCH (21:02)
[2022-11-27] MEDS: HEPARIN NA (PORCINE) 5,000 UNITS/ML 1ML VIAL SQ SCH ×3 (05:42→21:20)
[2022-11-27] MEDS ORDERED: ALPRAZolam 0.25 MG TABLET PO ONE (06:45)
[2022-11-27] MEDS: ACETAMINOPHEN 650 MG/20.3 ML ORAL SOLUTION (CUPS) GT PRN (06:47)
[2022-11-27 07:43] LABS: BASO % 0.1 % (0-2.0); HEMOGLOBIN 9.6 GM/dL (10.7-15.3); LYMPH % 11.4 % (8-40); MCH 30.6 pg (25.7-33.7); MCHC 33.2 g/dl (32.0-36.0); MEAN CELL VOLUME 92.2 fl (80-96); NEUT % 85.5 % (42.8-82.8); PLATELET COUNT 333 10^3/uL (134-434); RBC 3.14 M/mm3 (3.60-5.2); RDW 18.5 % (11.6-15.6); WHITE BLOOD COUNT 15.3 K/mm3 (4.0-10.0)
[2022-11-27 07:56] LABS: CHLORIDE 98 mmol/L (98-107); POTASSIUM 4.5 mmol/L (3.5-5.1); SODIUM 136 mmol/L (136-145)
[2022-11-27] MEDS ORDERED: SODIUM CHLORIDE 250 ML IV PRN (07:56)
[2022-11-27 08:10] LABS: ANION GAP 15 mmol/L (4-13); CALCIUM 8.6 mg/dL (8.5-10.1); CO2 24 mmol/L (21-32)
[2022-11-27 08:11] LABS: ALBUMIN 1.9 g/dl (3.4-5.0); GLUCOSE,RANDOM 117 mg/dL (74-106)
[2022-11-27 08:13] LABS: SGPT/ALT 32 U/L (13-61)
[2022-11-27 08:14] LABS: CREATININE 3.6 mg/dL (0.55-1.3); SGOT/AST 55 U/L (15-37)
[2022-11-27 08:15] LABS: BILIRUBIN,TOTAL 0.4 mg/dL (0.2-1); TOT PROT 5.9 g/dl (6.4-8.2)
[2022-11-27 08:16] LABS: ALK PHOS 175 U/L (45-117)
[2022-11-27 08:25] LABS: BLOOD UREA NITROGEN 112.6 mg/dL (7-18)
[2022-11-27] MEDS ORDERED: EPOETIN ALFA-EPBX 4,000 UNIT/ML VIAL IVPUSH ONE (08:30)
[2022-11-27] MEDS: SEVELAMER CARBONATE 0.8 GM POWDER PACKET GT SCH ×3 (11:17→17:35)
[2022-11-27] MEDS: DEXAMETHASONE SOD PHOSPHATE 10 MG/1 ML VIAL IVPUSH SCH (11:45)
[2022-11-27] MEDS: CARVEDILOL 25 MG TABLET (FP) GT SCH ×2 (11:45→21:20)
[2022-11-27] MEDS: VALPROATE SODIUM 250 MG/5 ML UNIT DOSE CUP GT SCH ×2 (11:45→21:20)
[2022-11-27] MEDS: ISOSORBIDE DINITRATE 10 MG TABLET GT SCH ×2 (11:46→16:16)
[2022-11-27] MEDS: cloNIDine HCL 0.1 MG TABLET GT SCH (11:46)
[2022-11-27] MEDS: ESCITALOPRAM OXALATE 10 MG TABLET GT SCH (11:46)
[2022-11-27] MEDS: REMDESIVIR 100 MG in SODIUM CHLORIDE 250 ML IVPB SCH (15:48)
[2022-11-27] MEDS: MEROPENEM 500 MG in DEXTROSE 5%-WATER 100 ML IVPB SCH (18:09)
[2022-11-27] MEDS: ATORVASTATIN CA 80 MG TABLET (FP) GT SCH (21:20)
[2022-11-27] MEDS: CHLORHEXIDINE GLUCONATE 4% CLEANSER FOR DECOLONIZATION TP SCH (21:21)
[2022-11-28 01:53] VITALS: RESP 18
[2022-11-28] MEDS: HEPARIN NA (PORCINE) 5,000 UNITS/ML 1ML VIAL SQ SCH ×3 (06:04→22:10)
[2022-11-28 08:45] LABS: BASO % 0.2 % (0-2.0); HEMATOCRIT 25.6 % (32.4-45.2); HEMOGLOBIN 8.4 GM/dL (10.7-15.3); LYMPH % 22.8 % (8-40); MCH 30.2 pg (25.7-33.7); MCHC 32.6 g/dl (32.0-36.0); MEAN CELL VOLUME 92.7 fl (80-96); MEAN PLT VOLUME 9.6 fl (7.5-11.1); MONO % 5.7 % (3.8-10.2); NEUT % 71.3 % (42.8-82.8); PLATELET COUNT 263 10^3/uL (134-434); RBC 2.77 M/mm3 (3.60-5.2); RDW 18.5 % (11.6-15.6)
[2022-11-28] MEDS: SEVELAMER CARBONATE 0.8 GM POWDER PACKET GT SCH ×2 (08:47→13:49)
[2022-11-28] MEDS: ISOSORBIDE DINITRATE 10 MG TABLET GT SCH ×2 (08:48→13:50)
[2022-11-28 09:02] LABS: POTASSIUM 4.5 mmol/L (3.5-5.1)
[2022-11-28 09:06] LABS: ALBUMIN 1.8 g/dl (3.4-5.0)
[2022-11-28 09:09] LABS: CREATININE 2.6 mg/dL (0.55-1.3)
[2022-11-28 09:10] LABS: BILIRUBIN,TOTAL 0.3 mg/dL (0.2-1); TOT PROT 5.4 g/dl (6.4-8.2)
[2022-11-28 09:22] LABS: BLOOD UREA NITROGEN 58.5 mg/dL (7-18)
[2022-11-28] MEDS: FAMOTIDINE 20 MG/2.5 ML ORAL LIQUID GT SCH (10:36)
[2022-11-28] MEDS: cloNIDine HCL 0.1 MG TABLET GT SCH (10:37)
[2022-11-28] MEDS: DEXAMETHASONE SOD PHOSPHATE 10 MG/1 ML VIAL IVPUSH SCH (10:37)
[2022-11-28] MEDS: ESCITALOPRAM OXALATE 10 MG TABLET GT SCH (10:37)
[2022-11-28] MEDS: VALPROATE SODIUM 250 MG/5 ML UNIT DOSE CUP GT SCH (10:37)
[2022-11-28] MEDS: CARVEDILOL 25 MG TABLET (FP) GT SCH (10:37)
[2022-11-28] MEDS ORDERED: VALPROATE SODIUM 250 MG/5 ML UNIT DOSE CUP GT SCH (13:59)
[2022-11-28] MEDS ORDERED: ACETAMINOPHEN 650 MG/20.3 ML ORAL SOLUTION (CUPS) GT PRN (15:08)
[2022-11-28] MEDS ORDERED: SEVELAMER CARBONATE 0.8 GM POWDER PACKET GT SCH (17:30)
[2022-11-28] MEDS ORDERED: MEROPENEM 500 MG in DEXTROSE 5%-WATER 100 ML IVPB SCH (18:00)
[2022-11-28] MEDS ORDERED: CARVEDILOL 25 MG TABLET (FP) GT SCH (22:00)
[2022-11-28] MEDS ORDERED: ATORVASTATIN CA 80 MG TABLET (FP) GT SCH (22:00)
[2022-11-29] MEDS: HEPARIN NA (PORCINE) 5,000 UNITS/ML 1ML VIAL SQ SCH (06:27)
[2022-11-29 07:16] VITALS: BP 113/61; PULSE 60; TEMP 98.3
[2022-11-29] MEDS ORDERED: ISOSORBIDE DINITRATE 10 MG TABLET GT SCH (08:00)
[2022-11-29] MEDS ORDERED: SODIUM CHLORIDE 250 ML IV PRN (09:00)
[2022-11-29] MEDS ORDERED: EPOETIN ALFA-EPBX 4,000 UNIT/ML VIAL SQ ONE (09:00)
[2022-11-29] MEDS ORDERED: ESCITALOPRAM OXALATE 10 MG TABLET GT SCH (10:00)
[2022-11-29] MEDS ORDERED: VITAMIN B COMP W-C 1 EA TABLET (NEPHRO-VITE) GT SCH (10:00)
[2022-11-29] MEDS ORDERED: cloNIDine HCL 0.1 MG TABLET GT SCH (10:00)
[2022-11-29] MEDS ORDERED: MUPIROCIN 2% TOPICAL OINTMENT FOR DECOLONIZATION NS SCH (10:00)
[2022-11-29] MEDS ORDERED: DEXAMETHASONE SOD PHOSPHATE 10 MG/1 ML VIAL IVPUSH SCH (10:00)
[2022-11-29] MEDS ORDERED: CHLORHEXIDINE GLUCONATE 4% CLEANSER FOR DECOLONIZATION TP SCH (22:00)
[2022-11-30] MEDS ORDERED: FAMOTIDINE 20 MG/2.5 ML ORAL LIQUID GT SCH (10:00)
== END 2022-11-29 09:40 | disposition expired | DRG 208 ==
LOC: JER 07:13 → JERBED 09:59 → J4S 11-17 02:13 → JICU 11-17 20:29 → J2W 11-22 19:06 → J5S 11-27 17:42 → JICU 11-29 09:30 → J5S 11-29 09:46 → JICU 11-29 09:46
PROVIDERS: ADMIT Internal Medicine; ATTEND Internal Medicine
PROC: 05HY33Z Insertion of Infusion Device into Upper Vein, Percutaneous Approach (ICD-10-PCS; 2022-11-15)
PROC: 0W9B3ZZ Drainage of Left Pleural Cavity, Percutaneous Approach (ICD-10-PCS; 2022-11-18)
PROC: XW033E5 Introduction of Remdesivir Anti-infective into Peripheral Vein, Percutaneous Approach, New Technology Group 5 (ICD-10-PCS; 2022-11-22)
PROC: 5A1D70Z Performance of Urinary Filtration, Intermittent, Less than 6 Hours Per Day (ICD-10-PCS; 2022-11-27)
PROC: 5A1935Z Respiratory Ventilation, Less than 24 Consecutive Hours (ICD-10-PCS; principal; 2022-11-28)
PROC: 5A12012 Performance of Cardiac Output, Single, Manual (ICD-10-PCS; 2022-11-28)
DX: J96.01 Acute respiratory failure with hypoxia (principal); L89.153 Pressure ulcer of sacral region, stage 3; E43 Unspecified severe protein-calorie malnutrition; N18.6 End stage renal disease; I50.33 Acute on chronic diastolic (congestive) heart failure; U07.1 COVID-19; J12.82 Pneumonia due to coronavirus disease 2019; I21.9 Acute myocardial infarction, unspecified; E87.1 Hypo-osmolality and hyponatremia; Z68.1 Body mass index [BMI] 19.9 or less, adult; J90 Pleural effusion, not elsewhere classified; I12.0 Hypertensive chronic kidney disease with stage 5 chronic kidney disease or end stage renal disease; R64 Cachexia; I24.89 Other forms of acute ischemic heart disease; J93.9 Pneumothorax, unspecified; Z93.0 Tracheostomy status; Z93.1 Gastrostomy status; Z99.2 Dependence on renal dialysis; E78.5 Hyperlipidemia, unspecified; R56.9 Unspecified convulsions; F41.8 Other specified anxiety disorders; I49.01 Ventricular fibrillation
CPT/HCPCS: 0241U-QW; 36415; 36600; 71045-TC-FY; 71250-TC; 80048; 80053; 80076; 80164; 81003; 82042; 82150; 82550; 82553; 82803; 82945; 82962; 83605; 83615; 83735; 83880; 83986; 84100; 84157; 84439; 84443; 84478; 84484; 84520; 85025; 85027; 85610; 85730; 86140; 86704; 86803; 86850; 86900; 86901; 87040; 87070; 87075; 87081; 87086; 87186; 87205; 87340; 87517; 87635; 87899; 88108; 88305-TC; 93005; 93010; 93306-TC; 94660; 99285-25; C9399; G0480; J1100; J1644; Q5106